=== PATIENT | male | born 1975 | race Caucasian/White ===

== ENCOUNTER 2022-01-06 19:16 | Emergency (ER) | payer OTHER ==
[~2022-01-06 19:16] MED LIST: AMLODIPINE BESYL5 MG PO; CLEOCIN300 MG PO; LEVAQUIN500 MG PO; XANAX0.5 MG PO
[2022-01-06 19:44] LABS: BASOPHIL 0.5 % (0-2); EOSINOPHIL 3.6 % (0-5); HCT 43.5 % (42.0-52.0); HGB 15.1 g/dl (13.2-18.0); LYMPHOCYTE 37.6 % (15-48); MCH 31.9 pg (25.0-31.0); MCHC 34.7 g/dL (32.0-36.0); MONOCYTE 7.9 % (0-12); MPV 9.9 fL (6.0-9.5); NRBC 0; PLT 250 K/uL (150-400); RBC 4.73 M/uL (4.70-6.00); RDW 12.4 % (11.5-14.0); WBC 11.3 K/uL (4.0-10.5)
[2022-01-06 20:09] LABS: ALBUMIN 4.1 g/dL (3.4-5.0); BILIRUBIN - TOTAL 0.4 mg/dL (0.2-1.0); BUN/CREAT RATIO (CALC) 15.6 RATIO; CREATININE 0.96 mg/dL (0.67-1.17); GLOBULIN (CALCULATION) 3.4 g/dL; POTASSIUM 3.4 mmol/L (3.5-5.1); TOTAL PROTEIN 7.5 g/dL (6.4-8.2)
[2022-01-06 20:29] LABS: CORONAVIRUS 2019 SARS-COV-2 NEGATIVE (NEGATIVE); INFLUENZA A NAA NEGATIVE (NEGATIVE)
== END 2022-01-06 22:25 | disposition home or self-care (01) ==
LOC: FER 19:16
PROVIDERS: Emergency Medicine
DX: R07.89 Other chest pain (principal); R11.10 Vomiting, unspecified; I10 Essential (primary) hypertension; Z20.822 Contact with and (suspected) exposure to COVID-19; Z88.0 Allergy status to penicillin; Z88.5 Allergy status to narcotic agent; Z79.899 Other long term (current) drug therapy
CPT/HCPCS: 36415; 71045; 80053; 84484; 85025; 93005; U0002